=== PATIENT | female | born 1985 | race Caucasian/White ===

== ENCOUNTER 2017-03-11 11:41 | Observation (INO) | payer OTHER ==
[~2017-03-11] VITALS: Ht 157.5 cm; Wt 62.6 kg
[~2017-03-11 11:41] MED LIST: IBUPROFEN800 MG PO; TUMS500 MG PO; ZOFRAN8 MG PO
[2017-03-11 12:53] LABS: EOSINOPHIL (%) 0.1 % (0-5); HEMATOCRIT 43.1 % (36.0-46.0); IMMATURE GRANULOCYTE (%) 0.2 % (0.0-0.7); INSTRUMENT ABS NEUTROPHIL CT 6.3 K/uL; LYMPHOCYTE COUNT 1.4 K/uL (1.0-2.8); MCHC 34.6 G/DL (30.0-36.0); MCV 83.9 FL (83-99); MONOCYTE (%) 6.9 % (3-12); MONOCYTE COUNT 0.6 K/uL (0-0.8); NEUTROPHIL (%) 76.1 % (45-76); NEUTROPHIL COUNT 6.3 K/uL (1.8-6.4); PLATELET COUNT 287 K/uL (156-360); RBC DIS.WIDTH-CV 12.1 % (11.8-14.6); RBC DIS.WIDTH-SD 36.5 % (39-53); RED BLOOD COUNT 5.14 M/uL (3.80-5.20); WHITE BLOOD COUNT 8.3 K/uL (4.1-10.2)
[2017-03-11 12:55] LABS: CHLORIDE 107 mEq/L (99-109); POTASSIUM 3.8 mEq/L (3.7-5.4); SODIUM 138 mEq/L (136-147)
[2017-03-11 12:57] LABS: GLUCOSE 97 mg/dL (70-99)
[2017-03-11 12:59] LABS: ANION GAP 11 MEQ/L (2-14)
[2017-03-11 13:01] LABS: GFR ESTIMATE (CALCULATED) > 59 mL/min/
[2017-03-11 13:02] LABS: UREA NITROGEN (BUN) 8 mg/dL (9-23)
[2017-03-11 13:27] LABS: QUANTITATIVE HCG 185470.3 MIU/ML
[2017-03-11 15:00] LABS: ADD MIUA? YES; BILIRUBIN NEGATIVE; BLOOD NEGATIVE; COLOR YELLOW ((YELLOW)); GLUCOSE (STRIP) NEGATIVE; KETONES 80; LEUKOCYTES MODERATE; NITRITE NEGATIVE; PROTEIN (STRIP) 30; SPECIFIC GRAVITY 1.026 (1.000-1.030)
[2017-03-11 15:10] LABS: BACTERIA RARE /HPF; EPITHELIAL CELLS 1+ /HPF; MUCUS TRACE /LPF
[2017-03-11] MEDS ORDERED: PRENATAL TABLE1 EAC3 PO (16:42)
[2017-03-11] MEDS ORDERED: ZOFRAN8 MG PO (16:42)
[2017-03-11 19:35] VITALS: BP 100/53
[2017-03-11 23:36] VITALS: BP 99/56
[2017-03-12 03:51] VITALS: BP 99/54
[2017-03-12 07:05] VITALS: BP 110/70
[2017-03-12 11:25] VITALS: BP 110/68
[2017-03-12 15:35] VITALS: BP 95/53
[2017-03-12 19:38] VITALS: BP 99/54
[2017-03-12 23:40] VITALS: BP 90/50
[2017-03-13 03:37] VITALS: BP 90/51
[2017-03-13 07:29] VITALS: BP 93/53
[2017-03-13] MEDS ORDERED: COMPAZINE10 MG PO (09:55)
[2017-03-13] MEDS ORDERED: METOCLOPRAMIDE10 MG PO (09:55)
[2017-03-13] MEDS ORDERED: PROMETHAZINE HC25 M1 PO (09:55)
== END 2017-03-13 13:49 | disposition home or self-care (01) ==
LOC: EME 11:41 → 2EAST 16:33 → EDOF 16:33 → ENRESERV 16:37 → 2EAST 19:23 → ENPENDDIS 03-13 → 2EAST 03-13 13:49
PROVIDERS: Emergency Medicine
DX: O21.1 Hyperemesis gravidarum with metabolic disturbance (principal); O23.41 Unspecified infection of urinary tract in pregnancy, first trimester; O99.281 Endocrine, nutritional and metabolic diseases complicating pregnancy, first trimester; Z3A.08 8 weeks gestation of pregnancy
CPT/HCPCS: 76801; 80048; 81003; 84443; 84702; 85025; 99281; 99284; G0378; J0780; J2405; J2765; J3411; J3415; J7030; J7120; Q0169; S0028

== ENCOUNTER 2017-03-14 23:04 | Observation (INO) | payer OTHER ==
[~2017-03-14] VITALS: Ht 157.5 cm; Wt 58.5 kg
[~2017-03-14 23:04] MED LIST changes: +COMPAZINE10 MG PO; +METOCLOPRAMIDE10 MG PO; +PRENATAL TABLE1 EAC3 PO; +PROMETHAZINE HC25 M1 PO
[2017-03-15 00:06] LABS: HEMATOCRIT 42.9 % (36.0-46.0); MCH 29.2 PG (29.0-34.0); MCHC 35.2 G/DL (30.0-36.0); MCV 82.8 FL (83-99); MEAN PLAT.VOLUME 10.2 uM^3 (9.5-12.4); PLATELET COUNT 296 K/uL (156-360); RBC DIS.WIDTH-CV 12.2 % (11.8-14.6); RBC DIS.WIDTH-SD 36.9 % (39-53); RED BLOOD COUNT 5.18 M/uL (3.80-5.20); WHITE BLOOD COUNT 8.6 K/uL (4.1-10.2)
[2017-03-15 00:15] LABS: CHLORIDE 107 mEq/L (99-109); POTASSIUM 3.3 mEq/L (3.7-5.4); SODIUM 139 mEq/L (136-147)
[2017-03-15 00:17] LABS: GLUCOSE 83 mg/dL (70-99)
[2017-03-15 00:19] LABS: ANION GAP 15 MEQ/L (2-14); TOTAL BILIRUBIN 1.7 mg/dL (0.0-1.0)
[2017-03-15 00:21] LABS: ALKALINE PHOSPHATASE 44 IU/L (3-129); GFR ESTIMATE (CALCULATED) > 59 mL/min/
[2017-03-15 00:22] LABS: UREA NITROGEN (BUN) 7 mg/dL (9-23)
[2017-03-15 00:23] LABS: DIRECT BILIRUBIN 0.6 mg/dL (0.0-0.3)
[2017-03-15 00:24] LABS: LIPASE 21 U/L (1.0-51.0)
[2017-03-15] MEDS ORDERED: PHENERGAN25 MG PR (01:03)
[2017-03-15 16:00] VITALS: BP 122/55
[2017-03-15 19:26] VITALS: BP 102/55
[2017-03-15 23:16] VITALS: BP 98/57
[2017-03-16 03:41] VITALS: BP 104/56
[2017-03-16 07:50] VITALS: BP 110/65
[2017-03-16 12:07] VITALS: BP 104/60
== END 2017-03-16 13:37 | disposition home or self-care (01) ==
LOC: EME 23:04 → 2EAST 03-15 01:03 → EDOF 03-15 01:03 → ENRESERV 03-15 05:15 → 2EAST 03-15 07:49
PROVIDERS: Emergency Medicine
DX: O21.0 Mild hyperemesis gravidarum (principal); Z3A.09 9 weeks gestation of pregnancy
CPT/HCPCS: 80048; 80076; 81003; 83690; 85027; 99281; 99285; G0378; J2405; J7030; J7120

== ENCOUNTER 2017-10-11 19:50 | Outpatient (CLI) | payer OTHER ==
[~2017-10-11] VITALS: Ht 157.5 cm; Wt 68.9 kg
[~2017-10-11 19:50] MED LIST changes: +PHENERGAN25 MG PR
[2017-10-11 20:00] VITALS: BP 123/82
== END 2017-10-11 21:15 | disposition home or self-care (01) ==
LOC: LDRP-OP 19:50 → 2WEST 19:51 → LDRP-OP 11-23 13:27
DX: O36.8130 Decreased fetal movements, third trimester, not applicable or unspecified (principal); Z3A.38 38 weeks gestation of pregnancy
CPT/HCPCS: 59025; G0378

== ENCOUNTER 2017-10-12 05:35 | Inpatient (IN) | payer OTHER ==
[2017-10-12] VITALS (9 sets, daily range): BP systolic 88–133; BP diastolic 55–79
[2017-10-12 06:28] LABS: BASOPHIL (%) 0.2 % (0-1); EOSINOPHIL (%) 0.1 % (0-5); HEMATOCRIT 34.2 % (36.0-46.0); HEMOGLOBIN 11.1 G/DL (11.9-15.5); IMMATURE GRANULOCYTE (%) 0.3 % (0.0-0.7); LYMPHOCYTE (%) 17.3 % (15-42); LYMPHOCYTE COUNT 2.2 K/uL (1.0-2.8); MCH 26.4 PG (29.0-34.0); MCHC 32.5 G/DL (30.0-36.0); MCV 81.4 FL (83-99); MONOCYTE (%) 3.8 % (3-12); MONOCYTE COUNT 0.5 K/uL (0-0.8); NEUTROPHIL (%) 78.3 % (45-76); NEUTROPHIL COUNT 10.1 K/uL (1.8-6.4); PLATELET COUNT 256 K/uL (156-360); RBC DIS.WIDTH-CV 13.6 % (11.8-14.6); WHITE BLOOD COUNT 12.9 K/uL (4.1-10.2)
[2017-10-12 06:56] LABS: AMPHETAMINE NEGATIVE (500 ng/mL); BARBITURATES NEGATIVE (200 ng/mL); BENZODIAZEPINES NEGATIVE (150 ng/mL); BUPRENORPHINE NEGATIVE (10 ng/mL); COCAINE NEGATIVE (150 ng/mL); METHADONE NEGATIVE (200 ng/mL); METHAMPHETAMINE NEGATIVE (500 ng/mL); OPIATES (MORPHINE) NEGATIVE (100 ng/mL); OXYCODONE NEGATIVE (100 ng/mL); PHENCYCLIDINE NEGATIVE (25 ng/mL); PROPOXYPHENE NEGATIVE (300 ng/mL); THC CANNABINOIDS NEGATIVE (50 ng/mL); TRICYCLIC ANTIDEPRESSANTS NEGATIVE (300 ng/mL)
[2017-10-13 06:22] LABS: BASOPHIL (%) 0.3 % (0-1); EOSINOPHIL (%) 0.5 % (0-5); EOSINOPHIL COUNT 0.1 K/uL (0-0.3); HEMATOCRIT 29.8 % (36.0-46.0); HEMOGLOBIN 9.6 G/DL (11.9-15.5); IMMATURE GRANULOCYTE (%) 0.2 % (0.0-0.7); LYMPHOCYTE COUNT 3.5 K/uL (1.0-2.8); MCH 26.3 PG (29.0-34.0); MCHC 32.2 G/DL (30.0-36.0); MCV 81.6 FL (83-99); MONOCYTE (%) 6.6 % (3-12); MONOCYTE COUNT 0.7 K/uL (0-0.8); NEUTROPHIL (%) 59.4 % (45-76); NEUTROPHIL COUNT 6.3 K/uL (1.8-6.4); PLATELET COUNT 251 K/uL (156-360); RBC DIS.WIDTH-CV 13.6 % (11.8-14.6); RBC DIS.WIDTH-SD 40.4 % (39-53); RED BLOOD COUNT 3.65 M/uL (3.80-5.20); WHITE BLOOD COUNT 10.6 K/uL (4.1-10.2)
[2017-10-13] MEDS ORDERED: IBUPROFEN800 MG PO (13:38)
[2017-10-13] MEDS ORDERED: FERROUS GLUCON324 MG PO (13:39)
== END 2017-10-13 16:00 | disposition home or self-care (01) | DRG 775 ==
LOC: LDRP-OP 05:35 → 2WEST 05:36 → LDRP-OP 11-23 21:23
PROVIDERS: Advanced Practice Midwife
PROC: 10E0XZZ Delivery of Products of Conception, External Approach (ICD-10-PCS; principal; 2017-10-12)
PROC: 10907ZC Drainage of Amniotic Fluid, Therapeutic from Products of Conception, Via Natural or Artificial Opening (ICD-10-PCS; principal; 2017-10-12)
DX: O90.81 Anemia of the puerperium (principal); D62 Acute posthemorrhagic anemia; Z3A.38 38 weeks gestation of pregnancy
CPT/HCPCS: 85025